=== PATIENT | female | born 1945 | race African-American/Black ===

== ENCOUNTER 2016-10-23 19:46 | Observation (INO) | payer MEDICARE, BC ==
[~2016-10-23] VITALS: Ht 172.7 cm; Wt 85.0 kg
[~2016-10-23 19:46] MED LIST: ALIG4CAP PO; ANTIDEPRESSANT PO; ASPI81 PO; BENI40TA30 PO; BETH10 PO; BRIM.15%O BOTH EYES; CALC500T21 PO; DORZ1SOL2 OD; JANU50TA5 PO; LACT20SO4 PO; LUMI0.01 RIGHT EYE; MAGN400 PO; OMEG1CAP53 PO; PROT40TA PO; STOOL SOFTENER PO; TAB-TAB PO; TRAZ100T50 PO
[2016-10-23 20:00] VITALS: BP 144/70; PULSE 90; RESP 20; TEMP 98.1; O2SAT 98
[2016-10-23] MEDS ORDERED: SODIUM CHLORIDE 0.9% FLUSH 10 ML FLUSH IVF PRN (20:00)
--- NOTE | 2016-10-23 20:04 | PD ---
HPI Chief Complaint: chest pain Time Seen by Provider: 19:55 Travel History International Travel<30 days: No Contact w/Intl Traveler<30days: No History of Present Illness HPI 71 y/o female presents with 5 minute episode of chest pain that occurred 40 minutes prior to arrival. She took aspirin that she had at home. She denies prior history of this. She states she had a routine stress test about 9 years ago that was negative. 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 She denies any other concurrent complaints. She states about 9 days ago she had a cast placed to her right leg by her wound care doctor to help her avoid surgery to that leg. She states she hasn't been as mobile since. Severity is resolved. She denies specific modifying factors. PFSH Past Medical History Arthritis: Yes (ALL OVER, KNEES, NECK ) Blood Disorders: Yes Anxiety: Yes (AT TIMES) Depression: Yes (IN PAST) Cancer: Yes (HX OF BREAST CA(RT BREAST)) Cardiovascular Problems: Yes High Cholesterol: Yes (UNDER CONTROL WITH FISH OIL) Chemotherapy: Yes Diabetes: Yes Endocrine: Yes GERD: Yes Glaucoma: Yes Genitourinary: No Immune Disorder: No Musculoskeletal: Yes Neurologic: No (NEUROPATHY ON TOP OF HEAD BUT NOT NOW) Psychiatric: Yes Reproductive: No Respiratory: Yes (BRONCHITIS) Radiation Therapy: Yes Sickle Cell Disease: Yes (TRACE) Menopausal: Yes Ovarian Cysts: Yes Past Surgical History Appendectomy: Yes Gynecologic Surgery: Yes (LUMPECTPMY 07, 80S, BLEEDING OVARIAN CYST) Other Surgery: Yes (RT LUMPECTOMY) Social History Alcohol Use: No Tobacco Use: No Substance Use: No Allergies-Medications (Allergen,Severity, Reaction): Coded Allergies: Zithromax (Verified Allergy, Severe, Nausea/Vomiting, 06/17/13) Reported Meds & Prescriptions Reported Meds & Active Scripts Active Reported [Alteril Sleep] 2 Tab PO HS Magnesium Oxide 400 Mg Tab 400 Mg PO BID Caltrate 600+D (Calcium Carbonate-Cholecalciferol) 600-800 Mg-Unit Tab 1 Tab PO DAILY Aspirin 81 Mg Tabdr 81 Mg PO HS Pred Forte Opth 1% (Prednisolone Acetate Opth 1%) 1% Susp 1 Drop RIGHT EYE DAILY Travatan Z Opth Drops (Travoprost) 0.004 % Soln 1 Drop LEFT EYE DAILY Centrum Silver Adult 50+ (Multiple Vitamins W/ Minerals) 1 Tab Tab 1 Tab PO DAILY Benicar (Olmesartan) 40 Mg Tab 40 Mg PO DAILY Protonix (Pantoprazole Sodium) 40 Mg Tab 40 Mg PO DAILY Janumet (Sitagliptin-Metformin) 50-500 Mg Tab 1 Tab PO DAILY Trazodone (Trazodone HCl) 100 Mg Tab 100 Mg PO HS Amitiza (Lubiprostone) 24 Mcg Cap 24 Mg PO DAILY @1700 Viibryd (Vilazodone) 40 Mg Tab 40 Mg PO DAILY Fish Oil 1200 mg ([place]-3 Fatty Acids) 1 Cap Cap 1,200 Mg PO BID D 2000 (Cholecalciferol) 2,000 Unit Tab 2,000 Units PO DAILY Zantac 150 Maximum Strength (Ranitidine HCl) 150 Mg Tab 150 Mg PO HS Cosopt Opth Drops (Dorzolamide-Timolol Opth Drops) 22.3-6.8 Mg/Ml Soln 1 Drop EACH EYE BID Review of Systems Except as stated in HPI: all other systems reviewed are Neg Physical Exam Narrative GENERAL: Well-nourished, well-developed patient. SKIN: Warm and dry. HEAD: Normocephalic and atraumatic. EYES: No injection or drainage. ENT: No nasal drainage noted. NECK: Supple, trachea midline. CARDIOVASCULAR: Regular rate and rhythm RESPIRATORY: Breath sounds equal bilaterally at apices. No accessory muscle use. GASTROINTESTINAL: Abdomen soft, non-tender, nondistended. EXTREMITIES: No edema to left leg, right leg limited with cast NEUROLOGICAL: Awake and alert. Moves all extremities. Normal speech. Data Data Last Documented VS Vital Signs Date Time Temp Pulse Resp B/P Pulse Ox O2 Delivery O2 Flow Rate FiO2 10/23/16 21:13 80 18 138/72 97 Room Air 10/23/16 20:00 98.1 Orders Electrocardiogram (10/23/16 19:59) Ckmb (Isoenzyme) Profile (10/23/16 19:59) Complete Blood Count With Diff (10/23/16 19:59) Comprehensive Metabolic Panel (10/23/16 19:59) D-Dimer (10/23/16 19:59) Magnesium (Mg) (10/23/16 19:59) Prothrombin Time / Inr (Pt) (10/23/16 19:59) Act Partial Throm Time (Ptt) (10/23/16 19:59) Troponin I (10/23/16 19:59) Chest, Single Ap (10/23/16 19:59) Ecg Monitoring (10/23/16 19:59) Bilateral Bp Monitoring (10/23/16 19:59) Iv Access Insert/Monitor (10/23/16 19:59) Oximetry (10/23/16 19:59) Sodium Chloride 0.9% Flush (Ns Flush) (10/23/16 20:00) CKMB (10/23/16 20:22) CKMB% (10/23/16 20:22) Ct Pulmonary Angiogram (10/23/16 ) Iohexol 350 Inj (Omnipaque 350 Inj) (10/23/16 21:41) Activity Bed Rest With Brp (10/23/16 22:13) Vital Signs (Adult) Q4H (10/23/16 22:13) Cardiac Rhythm .As Directed (10/23/16 22:13) Notify Dr: Other .PRN (10/23/16 22:13) Notify DrKaylin Parameters (10/23/16 22:13) Resp Oxygen Nasal Cannula (10/23/16 ) Ckmb (Isoenzyme) Profile (10/23/16 22:13) Ckmb (Isoenzyme) Profile (10/24/16 01:13) Troponin I (10/23/16 22:13) Troponin I (10/24/16 01:13) Electrocardiogram (10/23/16 22:13) Electrocardiogram (10/24/16 01:13) ^ Obtain (10/23/16 22:13) [employer] Architect / Telemetry TRINI.Q8H (10/23/16 22:13) Admit Order (Ed Use Only) (10/23/16 22:13) Labs Laboratory Tests Test 10/23/16 10/23/16 20:22 20:27 White Blood Count 9.7 TH/MM3 Red Blood Count 4.27 MIL/MM3 Hemoglobin 13.3 GM/DL Hematocrit 38.5 % Mean Corpuscular Volume 90.1 FL Mean Corpuscular Hemoglobin 31.2 PG Mean Corpuscular Hemoglobin 34.6 % Concent Red Cell Distribution Width 13.5 % Platelet Count 198 TH/MM3 Mean Platelet Volume 9.9 FL Neutrophils (%) (Auto) 70.2 % Lymphocytes (%) (Auto) 16.1 % Monocytes (%) (Auto) 10.5 % Eosinophils (%) (Auto) 2.3 % Basophils (%) (Auto) 0.9 % Neutrophils # (Auto) 6.8 TH/MM3 Lymphocytes # (Auto) 1.6 TH/MM3 Monocytes # (Auto) 1.0 TH/MM3 Eosinophils # (Auto) 0.2 TH/MM3 Basophils # (Auto) 0.1 TH/MM3 CBC Comment DIFF FINAL Differential Comment Sodium Level 137 MEQ/L Potassium Level 4.0 MEQ/L Chloride Level 103 MEQ/L Carbon Dioxide Level 25.7 MEQ/L Anion Gap 8 MEQ/L Blood Urea Nitrogen 18 MG/DL Creatinine 0.98 MG/DL Estimat Glomerular Filtration 67 ML/MIN Rate Random Glucose 90 MG/DL Calcium Level 9.2 MG/DL Magnesium Level 2.4 MG/DL Total Bilirubin 0.4 MG/DL Aspartate Amino Transf 20 U/L (AST/SGOT) Alanine Aminotransferase 23 U/L (ALT/SGPT) Alkaline Phosphatase 67 U/L Total Creatine Kinase 112 U/L Creatine Kinase MB 1.3 NG/ML Troponin I LESS THAN 0.02 NG/ML Total Protein 8.0 GM/DL Albumin 3.4 GM/DL Prothrombin Time 10.1 SEC Prothromb Time International 0.9 RATIO Ratio Activated Partial 24.7 SEC Thromboplast Time D-Dimer Quantitative (PE/DVT) 0.90 MG/L [facility] Medical Decision Making Medical Screen Exam Complete: Yes Emergency Medical Condition: Yes Medical Record Reviewed: Yes (past history confirmed) Interpretation(s) EMS EKG reviewed without STEMI criteria EKG shows NSR, no ST elevation or depression, and no arrhythmias. No significant T-wave inversions. Inferior leads with artifact CBC & BMP Diagram 10/23/16 20:22 Last 24 hours Impressions Chest X-Ray 10/23/16 1959 Signed Impressions: Service Date/Time: Sunday, October 23, 2016 20:03 - CONCLUSION: No evidence of acute cardiopulmonary disease. Cal Saleem MD CT Angiography 10/23/16 0000 Signed Impressions: Service Date/Time: Sunday, October 23, 2016 21:40 - CONCLUSION: No pulmonary embolus or other acute abnormality. Mild emphysema. Coronary artery calcification. Cal Saleem MD Differential Diagnosis Musculoskeletal, gastritis, cardiac, PE Narrative Course Will check blood work, chest x-ray, EKG and reevaluate. Currently pain-free ed workup no acute, agrees to [facility] observation Diagnosis Primary Impression: Chest pain Qualified Code: R07.9 - Chest pain, unspecified type Vicky Dugan MD October 23, 2016 20:04
[2016-10-23 20:08] VITALS: BP 148/68; PULSE 80; RESP 18; O2SAT 98; O2SAT 99
--- NOTE | 2016-10-23 20:25 | RADRPT ---
EXAM DATE/TIME: 10/23/2016 20:03 [facility] COMPARISON: No previous studies available for comparison. INDICATIONS : Chest pain. MEDICAL HISTORY : None. SURGICAL HISTORY : None. ENCOUNTER: Initial ACUITY: 1 day PAIN SCORE: 0/10 LOCATION: Bilateral chest FINDINGS: A single view of the chest demonstrates the lungs to be symmetrically aerated without evidence of mas s, infiltrate or effusion. The cardiomediastinal contours are unremarkable. Osseous structures are grossly intact. There is osteoarthritis of both acromioclavicular and glenohum eral joints. CONCLUSION: No evidence of acute cardiopulmonary disease. Cal Saleem MD on October 23, 2016 at 20:22 Board Certified Radiologist. This report was verified electronically.
[2016-10-23 20:34] LABS: AUTOMATED NEUTROPHIL # 6.8 TH/MM3 (1.8-7.7); BASOPHIL # 0.1 TH/MM3 (0-0.2); BASOPHIL % 0.9 % (0.0-2.0); EOSINOPHIL # 0.2 TH/MM3 (0-0.4); EOSINOPHIL % 2.3 % (0.0-4.0); HEMATOCRIT 38.5 % (35.0-46.0); HEMO FLAGS DIFF FINAL; LYMPH % 16.1 % (9.0-44.0); LYMPHOCYTE # 1.6 TH/MM3 (1.0-4.8); MEAN CELL VOLUME 90.1 FL (80.0-100.0); MEAN CORPUSCULAR HEMOGLOBIN 31.2 PG (27.0-34.0); MEAN CORPUSCULAR HGB CONC 34.6 % (32.0-36.0); MONO % 10.5 % (0.0-8.0); NEUT % 70.2 % (16.0-70.0); PLATELET COUNT 198 TH/MM3 (150-450); RED BLOOD COUNT 4.27 MIL/MM3 (4.00-5.30); RED CELL DISTRIBUTION WIDTH 13.5 % (11.6-17.2); WHITE BLOOD COUNT 9.7 TH/MM3 (4.0-11.0)
[2016-10-23 21:03] LABS: APTT (PATIENT) 24.7 SEC (24.3-30.1); INTERNATIONAL NORMALIZED RATIO 0.9 RATIO; PROTHROMBIN TIME - PATIENT 10.1 SEC (9.8-11.6)
[2016-10-23 21:04] LABS: ANION GAP 8 MEQ/L (5-15); AST (GOT) 20 U/L (15-37); BICARBONATE 25.7 MEQ/L (21.0-32.0); BLOOD UREA NITROGEN 18 MG/DL (7-18); CHLORIDE 103 MEQ/L (98-107); GLOMERULAR FILTRATION RATE 67 ML/MIN (>89); MAGNESIUM 2.4 MG/DL (1.5-2.5); SODIUM (NA) 137 MEQ/L (136-145)
[2016-10-23 21:09] LABS: ALKALINE PHOSPHATASE 67 U/L (45-117); ALT (GPT) 23 U/L (10-53); CREATINE KINASE 112 U/L (26-192); TOTAL BILIRUBIN ADULT 0.4 MG/DL (0.2-1.0)
[2016-10-23 21:13] VITALS: BP 138/72; PULSE 80; RESP 18; O2SAT 97
[2016-10-23 21:22] LABS: CKMB 1.3 NG/ML (0.5-3.6)
[2016-10-23] MEDS ORDERED: IOHEXOL 350 MG/ML 10 ML VIAL (for RAD DIAG) IV ONE (21:41)
[2016-10-23] MEDS ORDERED: AMIT24CA5 PO (22:09)
[2016-10-23] MEDS ORDERED: FISH1200 PO (22:09)
[2016-10-23] MEDS ORDERED: DORZ2SOL7 EACH EYE (22:09)
[2016-10-23] MEDS ORDERED: ZANTTAB PO (22:09)
[2016-10-23] MEDS ORDERED: CHOL1TAB35 PO (22:09)
[2016-10-23] MEDS ORDERED: VIIB40TA PO (22:09)
--- NOTE | 2016-10-23 22:11 | RADRPT ---
EXAM DATE/TIME: 10/23/2016 21:40 [facility] COMPARISON: No previous studies available for comparison. INDICATIONS : Chest pain; rule out pulmonary embolus. IV CONTRAST: 70 cc Omnipaque 350 (iohexol) IV RADIATION DOSE: 23.31 CTDIvol (mGy) MEDICAL HISTORY : Carcinoma, breast. Gastroesophageal reflux disease. Diabetes mellitus type 2.Cardiovascular disease SURGICAL HISTORY : Appendectomy. ENCOUNTER: Initial ACUITY: 1 day PAIN SCALE: 8/10 LOCATION: chest TECHNIQUE: Volumetric scanning of the chest was performed using a pulmonary embolism protocol MIP images were re constructed. Using automated exposure control and adjustment of the mA and/or kV according to patien t size, radiation dose was kept as low as reasonably achievable to obtain optimal diagnostic quality images. FINDINGS: PULMONARY ARTERIES: No filling defects are seen in the pulmonary arteries through the segmental level. LUNGS: There is no consolidation or pneumothorax . No concerning pulmonary nodule is visualized. There is m ild emphysema. PLEURAE: There is no pleural thickening or pleural effusion. MEDIASTINUM: There is good visualization of the great vessels of the middle mediastinum. No evidence of mediastin al or hilar adenopathy/mass. Coronary artery calcification noted. There is patchy atherosclerotic lester que of the thoracic aorta. No aneurysm. MUSCULOSKELETAL: Within normal limits for patient age. MISCELLANEOUS: The visualized upper abdominal organs demonstrate no acute abnormality. CONCLUSION: No pulmonary embolus or other acute abnormality. Mild emphysema. Coronary artery calcification. Cal Saleem MD on October 23, 2016 at 22:08 Board Certified Radiologist. This report was verified electronically.
[2016-10-23] MEDS ORDERED: BENI40TA3 PO (22:17)
[2016-10-23] MEDS ORDERED: PRED1SUS RIGHT EYE (22:17)
[2016-10-23] MEDS ORDERED: TRAV0.00 LEFT EYE (22:17)
[2016-10-23] MEDS ORDERED: TRAZ100T4 PO (22:17)
[2016-10-23] MEDS ORDERED: MULT1TAB PO (22:17)
[2016-10-23] MEDS ORDERED: PROT40TA PO (22:17)
[2016-10-23] MEDS ORDERED: JANU50TA4 PO (22:17)
[2016-10-23] MEDS ORDERED: ASPI1TAB69 PO (22:18)
[2016-10-23] MEDS ORDERED: MAGN400T2 PO (22:20)
[2016-10-23] MEDS ORDERED: CALTTAB PO (22:20)
[2016-10-23] MEDS ORDERED: [UNRECOGNIZED DRUG - OTHER] PO (22:24)
[2016-10-24] VITALS: BP 138/84; PULSE 101; RESP 20; TEMP 97.6; O2SAT 97
[2016-10-24 00:10] LABS: CREATINE KINASE 96 U/L (26-192)
[2016-10-24 00:15] VITALS: BP 138/84; PULSE 101; RESP 20; TEMP 97.6; O2SAT 97
[2016-10-24 04:00] VITALS: BP 136/63; PULSE 99; RESP 20; TEMP 98.4; O2SAT 95
[2016-10-24 04:03] LABS: CREATINE KINASE 97 U/L (26-192)
[2016-10-24 04:34] VITALS: PULSE 101
[2016-10-24 07:58] VITALS: BP 131/60; PULSE 99; RESP 18; TEMP 98.2; O2SAT 95
[2016-10-24 08:00] VITALS: PULSE 100
[2016-10-24] MEDS ORDERED: REGADENOSON INJ 0.4 MG/5 ML SYR ONE (09:11)
--- NOTE | 2016-10-24 09:51 | HHI.HP ---
[facility] Primary Care Physician Tita Salazar DO Chief Complaint Chest pain History of Present Illness This is a 71-year-old female that presents to ED with a complaint of back and chest discomfort that began yesterday afternoon. She states it radiated from her back into her front area and is pushing at the epigastric region but then states it was hurting her chest. She states discomfort radiated up into the left jaw. It lasted little less than 10 minutes. She had no associated shortness of breath, nausea, or diaphoresis. The discomfort has not recurred. Denies history of CAD. Review of Systems General: Patient denies fevers, chills recent, and recent travel HEENT: Patient denies headache, sore throat, difficulty swallowing. Cardiovascular: Has the chest discomfort as mentioned above. Denies sensation of heart beating rapidly or irregularly. No syncope. Denies diaphoresis. Respiratory: Denies shortness of breath or inspirational chest discomfort. Denies coughing wheezing or hemoptysis. GI: Patient denies nausea, vomiting, diarrhea, abdominal pain, bloody stools. Musculoskeletal: Patient denies joint pain or edema. Denies calf pain or edema. Neurovascular: Patient denies numbness, tingling, weakness in extremities. Denies headache. Endocrine: Denies polyuria and polydipsia. Hematologic: Denies easy bruising. Skin: Denies rash or itching. Past Family Social History Allergies: Coded Allergies: Zithromax (Verified Allergy, Severe, Nausea/Vomiting, 06/17/13) Past Medical History Diabetes, hypertension, hyperlipidemia. Denies known CAD. Wound under her toes of her right foot that she states she wears a cast for. Her doctor is following this. Past Surgical History Breast lumpectomy in 2006. Reported Medications Reported Meds & Active Scripts Active Reported [Alteril Sleep] 2 Tab PO HS Magnesium Oxide 400 Mg Tab 400 Mg PO BID Caltrate 600+D (Calcium Carbonate-Cholecalciferol) 600-800 Mg-Unit Tab 1 Tab PO DAILY Aspirin 81 Mg Tabdr 81 Mg PO HS Pred Forte Opth 1% (Prednisolone Acetate Opth 1%) 1% Susp 1 Drop RIGHT EYE DAILY Travatan Z Opth Drops (Travoprost) 0.004 % Soln 1 Drop LEFT EYE DAILY Centrum Silver Adult 50+ (Multiple Vitamins W/ Minerals) 1 Tab Tab 1 Tab PO DAILY Benicar (Olmesartan) 40 Mg Tab 40 Mg PO DAILY Protonix (Pantoprazole Sodium) 40 Mg Tab 40 Mg PO DAILY Janumet (Sitagliptin-Metformin) 50-500 Mg Tab 1 Tab PO DAILY Trazodone (Trazodone HCl) 100 Mg Tab 100 Mg PO HS Amitiza (Lubiprostone) 24 Mcg Cap 24 Mg PO DAILY @1700 Viibryd (Vilazodone) 40 Mg Tab 40 Mg PO DAILY Fish Oil 1200 mg ([place]-3 Fatty Acids) 1 Cap Cap 1,200 Mg PO BID D 2000 (Cholecalciferol) 2,000 Unit Tab 2,000 Units PO DAILY Zantac 150 Maximum Strength (Ranitidine HCl) 150 Mg Tab 150 Mg PO HS Cosopt Opth Drops (Dorzolamide-Timolol Opth Drops) 22.3-6.8 Mg/Ml Soln 1 Drop EACH EYE BID Active Ordered Medications Current Medications Medications (Trade) Dose Ordered Sig/Johanny Route Start Time Stop Time Status Last Admin (NS Flush) 2 ml UNSCH PRN IVF 10/23/16 20:00 Family History Denies family history of CAD. Social History Patient does not smoke, drink alcohol, or use illicit drugs. Physical Exam Vital Signs Vital Signs Date Time Temp Pulse Resp B/P Pulse Ox O2 Delivery O2 Flow Rate FiO2 10/24/16 07:58 98.2 99 18 131/60 95 10/24/16 06:50 21 10/24/16 04:34 101 10/24/16 04:00 98.4 99 20 136/63 95 10/24/16 00:15 97.6 101 20 138/84 97 10/23/16 21:13 80 18 138/72 97 Room Air 10/23/16 20:08 80 18 148/68 99 Room Air 10/23/16 20:08 98 Room Air 10/23/16 20:08 88 10/23/16 20:00 98.1 90 20 144/70 98 Physical Exam GENERAL: This is a well-nourished, well-developed patient, in no apparent distress. Patient speaks in clear complete sentences. Patient is pleasant. HEENT: Head is atraumatic and normocephalic. Neck is supple without lymphadenopathy and trachea is midline. No JVD or carotid bruits. CARDIOVASCULAR: Regular rate and rhythm without murmurs, gallops, or rubs. RESPIRATORY: Clear to auscultation. Breath sounds equal bilaterally. No wheezes , rales, or rhonchi. Chest wall is nontender. No use of accessory muscles. GASTROINTESTINAL: Abdomen is nontender, nondistended. Abdomen soft. No obvious pulsatile mass or bruit. No CVA tenderness. Strong femoral pulses bilaterally. Normal bowel sounds in all quadrants. MUSCULOSKELETAL: Patient is moving upper and lower extremities freely. No calf tenderness or edema, no Homans sign. Strong pulses in upper and lower extremities. Right foot has a cast on it. NEUROLOGICAL: Patient is alert and oriented. Cranial nerves 2-12 are grossly intact. No focal deficits and speech is clear. SKIN: No rash and turgor is normal. Laboratory Laboratory Tests Test 10/23/16 10/23/16 10/23/16 10/24/16 20:22 20:27 23:30 02:35 White Blood Count 9.7 Red Blood Count 4.27 Hemoglobin 13.3 Hematocrit 38.5 Mean Corpuscular Volume 90.1 Mean Corpuscular Hemoglobin 31.2 Mean Corpuscular Hemoglobin 34.6 Concent Red Cell Distribution Width 13.5 Platelet Count 198 Mean Platelet Volume 9.9 Neutrophils (%) (Auto) 70.2 Lymphocytes (%) (Auto) 16.1 Monocytes (%) (Auto) 10.5 Eosinophils (%) (Auto) 2.3 Basophils (%) (Auto) 0.9 Neutrophils # (Auto) 6.8 Lymphocytes # (Auto) 1.6 Monocytes # (Auto) 1.0 Eosinophils # (Auto) 0.2 Basophils # (Auto) 0.1 CBC Comment DIFF FINAL Differential Comment Sodium Level 137 Potassium Level 4.0 Chloride Level 103 Carbon Dioxide Level 25.7 Anion Gap 8 Blood Urea Nitrogen 18 Creatinine 0.98 Estimat Glomerular Filtration 67 Rate Random Glucose 90 Calcium Level 9.2 Magnesium Level 2.4 Total Bilirubin 0.4 Aspartate Amino Transf 20 (AST/SGOT) Alanine Aminotransferase 23 (ALT/SGPT) Alkaline Phosphatase 67 Total Creatine Kinase 112 96 97 Creatine Kinase MB 1.3 Troponin I LESS THAN 0.02 LESS THAN 0.02 LESS THAN 0.02 Total Protein 8.0 Albumin 3.4 Prothrombin Time 10.1 Prothromb Time International 0.9 Ratio Activated Partial 24.7 Thromboplast Time D-Dimer Quantitative (PE/DVT) 0.90 Result Diagram: 5/21/17 2022 5/21/17 2022 Imaging Last 48 hours Impressions Chest X-Ray 10/23/16 1959 Signed Impressions: Service Date/Time: Sunday, October 23, 2016 20:03 - CONCLUSION: No evidence of acute cardiopulmonary disease. Cal Saleem MD CT Angiography 10/23/16 0000 Signed Impressions: Service Date/Time: Sunday, October 23, 2016 21:40 - CONCLUSION: No pulmonary embolus or other acute abnormality. Mild emphysema. Coronary artery calcification. Cal Saleem MD Course EKGs have sinus rhythm without significant ST segment depressions or elevations. Assessment and Plan Assessment and Plan * Chest pain: Patient has had serial cardiac enzymes and EKGs for ruling out purposes. She has been seen by Dr. Andrey Mccarthy of cardiology in the chest pain center and will undergo a Lexiscan. She'll be discharged home the Lexiscan is nonischemic with instructions to follow-up with her primary care physician. * Diabetes: Patient will be on sliding scale insulin coverage. She should follow diabetic diet. Patient also she will statin medication should discuss it with her physician. * Hypertension: Continue her medication. * Hyperlipidemia: Patient needs discuss statin therapy with her PCP. States she is taking [id number] medication at this time. Patient is stable at this time. She is agreeable to this plan. Zander Davenport October 24, 2016 09:51
[2016-10-24] MEDS ORDERED: DEXTROSE 50% IN WATER 50 ML VIAL(D50) IV PRN (10:00)
[2016-10-24] MEDS ORDERED: GLUCAGON 1 MG/ML VIAL IM/SQ PRN (10:00)
--- NOTE | 2016-10-24 10:44 | RADRPT ---
EXAM DATE/TIME: 10/24/2016 09:01 [facility] COMPARISON: No previous studies available for comparison. INDICATIONS : Chest pains for 1 day. Angina. DOSE: 26.6 mCi Tc99m Myoview at stress. 8.1 mCi Tc99m Myoview at rest. 0.4 mg Lexiscan STRESS SYMPTOMS: Shortness of breath. EJECTION FRACTION: 46% MEDICAL HISTORY : Hypertension. Carcinoma, breast. History of smoking. SURGICAL HISTORY : Mastectomy, right. ENCOUNTER: Initial ACUITY: 1 day PAIN SCALE: 2/10 LOCATION: Bilateral chest TECHNIQUE: The patient underwent pharmacologic stress with infusion of prescribed dose. Continuous ECG tracing was monitored during stress. Gated SPECT imaging was performed after stress and conventional SPECT i maging was performed at rest. The examination was performed on a SPECT/CT scanner, both attenuation and non-corrected datasets were reviewed. FINDINGS: DISTRIBUTION: The maximum perfused segment at stress is in the septal wall. PERFUSION STUDY: Is moderately diminished perfusion involving a small portion of the apex. No evidence of redistributi on. GATED STUDY: Mild global hypokinesis CONCLUSION: Small sized moderate severity nonreversible apical perfusion abnormality. Mild LV dysfunction. RISK CATEGORY: Intermediate (1-3% Annual Mortality Rate) Cal Torrez MD on October 24, 2016 at 10:40 Board Certified Radiologist. This report was verified electronically.
--- NOTE | 2016-10-24 10:58 | HHI.DCPOC ---
Discharge Care Plan Diagnosis: (1) Chest pain (2) Hypertension (3) DM (diabetes mellitus) Goals to Promote Your Health YOU SHOULD BE TAKING A CHOLESTEROL MEDICATION WHEN YOU HAVE A DIAGNOSIS OF DIABETES DISCUSS THIS WITH YOUR PRIMARY CARE PHYSICAN. * To prevent worsening of your condition and complications * To maintain your health at the optimal level Directions to Meet Your Goals Take your medications as prescribed Follow your dietary instruction Follow activity as directed Keep your appointments as scheduled Take your immunizations and boosters as scheduled If your symptoms worsen call your PCP, if no PCP go to Urgent Care Center or Emergency Room Smoking is Dangerous to Your Health. Avoid second hand smoke Call the 24-hour hour crisis hotline for domestic abuse at Zander Davenport October 24, 2016 10:57
[2016-10-24] MEDS ORDERED: PANTOPRAZOLE SOD 40 MG DELAYED RELEASE TAB PO SCH (11:00)
[2016-10-24] MEDS ORDERED: INSULIN ASPART SUPPLEMENTAL SCALE SQ SCH (11:00)
[2016-10-24] MEDS ORDERED: LOSARTAN 50 MG TAB PO SCH (12:00)
--- NOTE | 2016-10-24 14:57 | EKG ---
Date Performed: 10/24/2016 Time Performed: 02:52:49 PTAGE: 71 years EKG: Sinus rhythm POSSIBLE RIGHT ATRIAL ENLARGEMENT POSSIBLE LEFT ATRIAL ENLARGEMENT MARKED LEFT AXIS DEVIATION PATTER N CONSISTENT WITH PULMONARY DISEASE ABNORMAL ECG PREVIOUS TRACING : 04/18/2010 16.51 Since previous tracing, no significant change noted DOCTOR: Andrey Mccarthy Interpretating Date/Time 10/24/2016 14:55:18
--- NOTE | 2016-10-24 14:58 | EKG ---
Date Performed: 10/23/2016 Time Performed: 23:38:38 PTAGE: 71 years EKG: Sinus rhythm POSSIBLE RIGHT ATRIAL ENLARGEMENT POSSIBLE LEFT ATRIAL ENLARGEMENT MARKED LEFT AXIS DEVIATION PATTER N CONSISTENT WITH PULMONARY DISEASE ABNORMAL ECG PREVIOUS TRACING : 10/23/2016 20.07 Since previous tracing, no significant change noted DOCTOR: Andrey Mccarthy Interpretating Date/Time 10/24/2016 14:56:42
--- NOTE | 2016-10-24 14:59 | EKG ---
Date Performed: 10/23/2016 Time Performed: 20:07:10 PTAGE: 71 years EKG: Sinus rhythm POSSIBLE RIGHT ATRIAL ENLARGEMENT POSSIBLE LEFT ATRIAL ENLARGEMENT MARKED LEFT AXIS DEVIATION ABNORM AL ECG PREVIOUS TRACING : 10/23/2016 20.05 Since previous tracing, no significant change noted DOCTOR: Andrey Mccarthy Interpretating Date/Time 10/24/2016 14:57:29
[2016-10-24] MEDS ORDERED: LUBIPROSTONE 24 MG PO SCH (17:00)
[2016-10-24] MEDS ORDERED: traZODone HCL 100 MG TAB PO SCH (21:00)
[2016-10-24] MEDS ORDERED: FAMOTIDINE 20 MG TAB PO SCH (21:00)
[2016-10-24] MEDS ORDERED: MAGNESIUM OXIDE 400 MG TAB PO SCH (21:00)
[2016-10-25] MEDS ORDERED: MULTIVITAMINS/MINERALS THERAPEUTIC TAB PO SCH (09:00)
[2016-10-25] MEDS ORDERED: metFORMIN HCL 500 MG TAB PO SCH (09:00)
[2016-10-25] MEDS ORDERED: NON-FORMULARY DRUG (Sitagliptin-Metformin (Janumet) 1 TAB) PO SCH (09:00)
[2016-10-25] MEDS ORDERED: VILAZODONE 40 MG PO SCH (09:00)
--- NOTE | 2016-10-26 07:02 | TR ---
Date Performed: 10/24/2016 Time Performed: 09:32:02 DOCTOR: Akanksha Zuluaga DRUG LIST: CLINICAL HISTORY: ANGINA REASON FOR TEST: Angina REASON FOR ENDING: OBSERVATION: CONCLUSION: Lexiscan stress test was performed under standard four minute protocol. Radionuclid e was injected one minute prior to ending the test. No electrocardiographic abormalities were present to suggest ischemia. Nuclear imaging and interpretation are pending. COMMENTS:
== END 2016-10-24 14:19 | disposition home or self-care (01) ==
LOC: NEPC 19:46 → NEDA 22:14 → NEPGCP 10-24 00:19
DX: R07.89 Other chest pain (principal); E11.9 Type 2 diabetes mellitus without complications; I10 Essential (primary) hypertension; E78.5 Hyperlipidemia, unspecified; M17.0 Bilateral primary osteoarthritis of knee; E78.00 Pure hypercholesterolemia, unspecified; D57.1 Sickle-cell disease without crisis; K21.9 Gastro-esophageal reflux disease without esophagitis; F41.9 Anxiety disorder, unspecified; F32.9 Major depressive disorder, single episode, unspecified; Z79.82 Long term (current) use of aspirin; Z88.1 Allergy status to other antibiotic agents; Z85.3 Personal history of malignant neoplasm of breast
CPT/HCPCS: 71010; 71275; 78452; 80053; 82550; 82552; 82948; 83735; 84484; 85025; 85379; 85610; 85730; 93005; 93017; A9502; G0378; J2785; Q9967

== ENCOUNTER 2017-06-26 15:14 | Observation (INO) | payer MEDICARE, BC ==
[~2017-06-26] VITALS: Ht 165.1 cm; Wt 93.0 kg
[~2017-06-26 15:14] MED LIST changes: -ALIG4CAP PO; +AMIT24CA9 PO; -ANTIDEPRESSANT PO; +ASPI1TAB69 PO; -ASPI81 PO; +BENI40TA29 PO; -BENI40TA30 PO; -BETH10 PO; -BRIM.15%O BOTH EYES; -CALC500T21 PO; +CALTTAB PO; +CHOL1TAB35 PO; -DORZ1SOL2 OD; +DORZ2SOL7 EACH EYE; +FISH1200 PO; +JANU50TA4 PO; -JANU50TA5 PO; -LACT20SO4 PO; -LUMI0.01 RIGHT EYE; -MAGN400 PO; +MAGN400T2 PO; +MULT1TAB PO; -OMEG1CAP53 PO; +PRED1SUS RIGHT EYE; -STOOL SOFTENER PO; -TAB-TAB PO; +TRAV0.00 LEFT EYE; +TRAZ100T4 PO; -TRAZ100T50 PO; +VIIB40TA PO; +ZANTTAB PO
[2017-06-26 15:18] VITALS: BP 103/71; PULSE 107; RESP 14; TEMP 98.4; O2SAT 96
--- NOTE | 2017-06-26 16:48 | RADRPT ---
EXAM DATE/TIME: 06/26/2017 15:39 [facility] COMPARISON: No previous studies available for comparison. INDICATIONS : Short of breath MEDICAL HISTORY : Hypertension. Carcinoma, breast. History of smoking SURGICAL HISTORY : Mastectomy, right. ENCOUNTER: Initial ACUITY: 3 weeks PAIN SCORE: 0/10 LOCATION: Bilateral chest FINDINGS: PA and lateral views of the chest demonstrate the lungs to be symmetrically aerated without evidence of mass, infiltrate or effusion. The cardiomediastinal contours are unremarkable. Osseous structure s are intact. CONCLUSION: 1. No acute cardiopulmonary disease. John Hoffman MD on June 26, 2017 at 16:31 Board Certified Radiologist. This report was verified electronically.
[2017-06-26 17:11] LABS: BASOPHIL # 0.1 TH/MM3 (0-0.2); BASOPHIL % 0.8 % (0.0-2.0); EOSINOPHIL # 0.2 TH/MM3 (0-0.4); EOSINOPHIL % 2.9 % (0.0-4.0); HEMATOCRIT 40.4 % (35.0-46.0); HEMOGLOBIN 13.8 GM/DL (11.6-15.3); LYMPH % 18.3 % (9.0-44.0); LYMPHOCYTE # 1.4 TH/MM3 (1.0-4.8); MEAN CELL VOLUME 88.8 FL (80.0-100.0); MEAN CORPUSCULAR HEMOGLOBIN 30.3 PG (27.0-34.0); MEAN CORPUSCULAR HGB CONC 34.1 % (32.0-36.0); MEAN PLATELET VOLUME 10.1 FL (7.0-11.0); MONO % 10.7 % (0.0-8.0); MONOCYTE # 0.8 TH/MM3 (0-0.9); NEUT % 67.3 % (16.0-70.0); PLATELET COUNT 212 TH/MM3 (150-450); RED BLOOD COUNT 4.54 MIL/MM3 (4.00-5.30); RED CELL DISTRIBUTION WIDTH 14.3 % (11.6-17.2); WHITE BLOOD COUNT 7.5 TH/MM3 (4.0-11.0)
[2017-06-26] MEDS ORDERED: SODIUM CHLOR 0.9% 1000 ML INJ 1,000 ML IV ONE (17:15)
[2017-06-26] MEDS ORDERED: ACETAMINOPHEN/HYDROcodone 325 MG/5 MG TAB PO ONE (17:15)
[2017-06-26 17:21] LABS: PROTHROMBIN TIME - PATIENT 10.3 SEC (9.8-11.6)
[2017-06-26] MEDS ORDERED: ACYC400T PO (17:23)
--- NOTE | 2017-06-26 17:24 | PD ---
HPI Chief Complaint: Cold / Flu Symptoms Time Seen by Provider: 16:58 Travel History International Travel<30 days: No Contact w/Intl Traveler<30days: No Traveled to known affect area: No History of Present Illness HPI 72-year-old female with a history of diabetes presents to emergency department complaining of general malaise, fatigue, shortness of breath with exertion approximately 6 months. Patient states she came in today because she has shortness of breath after walking 10 feet for 1 week. States she has developed a nonproductive cough for the last week as well. States that the symptoms started after her colonoscopy March 25 and she has been evaluated by Dr. Michael, her records analyst who performed a heart catheter in April 2017. States that this was normal. In addition, patient states that she has having right occipital pain that started 5 days ago. Patient denies blurred vision, head trauma, neck trauma. Patient saw her primary care physician Monday and advised she go to her records analyst again for evaluation. Patient denies history of cardiac, pulmonary or kidney issues. She has a history of Yeung's esophagus and colonic polyps. Patient denies nausea, vomiting or diarrhea. Denies melena, hematochezia, hemoptysis, hematemesis. Denies history of clots, recent travel. PFSH Past Medical History Arthritis: Yes (ALL OVER, KNEES, NECK ) Blood Disorders: Yes Anxiety: Yes (AT TIMES) Depression: Yes (IN PAST) Heart Rhythm Problems: No Cancer: Yes (HX OF BREAST CA(RT BREAST)) Cardiac Catheterization: No Cardiovascular Problems: Yes High Cholesterol: No Chemotherapy: Yes Congestive Heart Failure: No Diabetes: No Endocrine: Yes Gastrointestinal Disorders: Yes GERD: Yes Glaucoma: Yes Genitourinary: No Immune Disorder: No Musculoskeletal: Yes Psychiatric: Yes Reproductive: No Respiratory: Yes (BRONCHITIS) Radiation Therapy: Yes Sickle Cell Disease: Yes (TRACE) Menopausal: Yes Ovarian Cysts: Yes Past Surgical History Appendectomy: Yes Coronary Artery Bypass Graft: No Gynecologic Surgery: Yes (LUMPECTPMY 07, 80S, BLEEDING OVARIAN CYST) Other Surgery: Yes (RT LUMPECTOMY) Social History Alcohol Use: Yes (BEER NIGHTLY ) Tobacco Use: No (20 YEARS QUIT ) Substance Use: No Allergies-Medications (Allergen,Severity, Reaction): Coded Allergies: azithromycin (Verified Allergy, Severe, Nausea/Vomiting, 06/26/17) Reported Meds & Prescriptions Reported Meds & Active Scripts Active Reported Paxil (Paroxetine HCl) 10 Mg Tab 10 Mg PO DAILY Trazodone (Trazodone HCl) 100 Mg Tablet 100 Mg PO HS Magnesium Oxide 400 Mg Tab 400 Mg PO BID Pred Forte Opth 1% (Prednisolone Acetate Opth 1%) 1% Susp 1 Drop RIGHT EYE DAILY Travatan Z Opth Drops (Travoprost) 0.004 % Soln 1 Drop LEFT EYE DAILY Centrum Silver Adult 50+ (Multiple Vitamins W/ Minerals) 1 Tab Tab 1 Tab PO DAILY Benicar (Olmesartan) 40 Mg Tab 40 Mg PO DAILY Protonix (Pantoprazole Sodium) 40 Mg Tab 40 Mg PO DAILY Janumet (Sitagliptin-Metformin) 50-500 Mg Tab 1 Tab PO DAILY Amitiza (Lubiprostone) 24 Mcg Cap 24 Mg PO DAILY @1700 Fish Oil 1200 mg ([place]-3 Fatty Acids) 1 Cap Cap 1,200 Mg PO BID D 2000 (Cholecalciferol) 2,000 Unit Tab 2,000 Units PO DAILY Zantac 150 Maximum Strength (Ranitidine HCl) 150 Mg Tab 150 Mg PO HS Cosopt Opth Drops (Dorzolamide-Timolol Opth Drops) 22.3-6.8 Mg/Ml Soln 1 Drop EACH EYE BID Review of Systems Except as stated in HPI: all other systems reviewed are Neg Physical Exam Narrative GENERAL: Well-developed well-nourished in no apparent distress resting comfortably in bed SKIN: Focused skin assessment warm/dry. HEAD: Atraumatic. Normocephalic. EYES: Pupils equal and round. No scleral icterus. No injection or drainage. ENT: No nasal bleeding or discharge. Mucous membranes pink and moist. NECK: Trachea midline. No JVD. No lymphadenopathy CARDIOVASCULAR: Regular rate and rhythm. No murmur appreciated. RESPIRATORY: No accessory muscle use. Clear to auscultation. Breath sounds equal bilaterally. GASTROINTESTINAL: Abdomen soft, non-tender, nondistended. Hepatic and splenic margins not palpable. MUSCULOSKELETAL: No obvious deformities. No clubbing. No cyanosis. No edema. Homans sign negative bilateral lower extremities. NEUROLOGICAL: Awake and alert. No obvious cranial nerve deficits. Motor grossly within normal limits. Normal speech. PSYCHIATRIC: Appropriate mood and affect; insight and judgment normal. Data Data Last Documented VS Vital Signs Date Time Temp Pulse Resp B/P (MAP) Pulse Ox O2 Delivery O2 Flow Rate FiO2 06/26/17 19:21 92 20 117/79 (92) 98 Room Air 06/26/17 15:18 98.4 Orders Orders Complete Blood Count With Diff (06/26/17 15:30) Comprehensive Metabolic Panel (06/26/17 15:30) Act Partial Throm Time (Ptt) (06/26/17 15:30) Prothrombin Time / Inr (Pt) (06/26/17 15:30) Magnesium (Mg) (06/26/17 15:30) Ckmb (Isoenzyme) Profile (06/26/17 15:30) Troponin I (06/26/17 15:30) Electrocardiogram (06/26/17 15:30) Chest, Pa & Lat (06/26/17 15:30) Influenzae A/B Antigen (06/26/17 15:30) Sodium Chlor 0.9% 1000 Ml Inj (Ns 1000 M (06/26/17 17:15) Acetamin-Hydrocod 325-5 Mg ([place] 5-325 (06/26/17 17:15) Iv Access Insert/Monitor (06/26/17 17:17) Albuterol-Ipratropium Neb (Duoneb Neb) (06/26/17 17:30) CKMB (06/26/17 16:07) CKMB% (06/26/17 16:07) Diltiazem Inj (Cardizem Inj) (06/26/17 19:15) Admit Order (Ed Use Only) (06/26/17 19:25) Labs Laboratory Tests Test 06/26/17 16:07 White Blood Count 7.5 TH/MM3 Red Blood Count 4.54 MIL/MM3 Hemoglobin 13.8 GM/DL Hematocrit 40.4 % Mean Corpuscular Volume 88.8 FL Mean Corpuscular Hemoglobin 30.3 PG Mean Corpuscular Hemoglobin Concent 34.1 % Red Cell Distribution Width 14.3 % Platelet Count 212 TH/MM3 Mean Platelet Volume 10.1 FL Neutrophils (%) (Auto) 67.3 % Lymphocytes (%) (Auto) 18.3 % Monocytes (%) (Auto) 10.7 % Eosinophils (%) (Auto) 2.9 % Basophils (%) (Auto) 0.8 % Neutrophils # (Auto) 5.0 TH/MM3 Lymphocytes # (Auto) 1.4 TH/MM3 Monocytes # (Auto) 0.8 TH/MM3 Eosinophils # (Auto) 0.2 TH/MM3 Basophils # (Auto) 0.1 TH/MM3 CBC Comment DIFF FINAL Differential Comment Prothrombin Time 10.3 SEC Prothromb Time International Ratio 1.0 RATIO Activated Partial Thromboplast Time 26.1 SEC Blood Urea Nitrogen 12 MG/DL Creatinine 1.06 MG/DL Random Glucose 134 MG/DL Total Protein 8.2 GM/DL Albumin 3.4 GM/DL Calcium Level 8.9 MG/DL Magnesium Level 2.2 MG/DL Alkaline Phosphatase 67 U/L Aspartate Amino Transf (AST/SGOT) 20 U/L Alanine Aminotransferase (ALT/SGPT) 21 U/L Total Bilirubin 0.4 MG/DL Sodium Level 140 MEQ/L Potassium Level 3.9 MEQ/L Chloride Level 106 MEQ/L Carbon Dioxide Level 24.6 MEQ/L Anion Gap 9 MEQ/L Estimat Glomerular Filtration Rate 61 ML/MIN Total Creatine Kinase 267 U/L Creatine Kinase MB 2.1 NG/ML Creatine Kinase MB % 0.8 % Troponin I LESS THAN 0.02 NG/ML MDM Medical Decision Making Medical Screen Exam Complete: Yes Emergency Medical Condition: Yes Differential Diagnosis NSTEMI, herpes zoster, occipital neuralgia Narrative Course 72-year-old female with a history of diabetes presents to emergency department complaining of general malaise, fatigue, shortness of breath with exertion approximately 6 months. Patient states she came in today because she has shortness of breath after walking 10 feet for 1 week. States she has developed a nonproductive cough for the last week as well. States that the symptoms started after her colonoscopy March 25 and she has been evaluated by Dr. Michael, her records analyst who performed a heart catheter in April 2017. States that this was normal. In addition, patient states that she has having right occipital pain that started 5 days ago. Patient denies blurred vision, head trauma, neck trauma. Patient saw her primary care physician Monday and advised she go to her records analyst again for evaluation. Patient denies history of cardiac, pulmonary or kidney issues. She has a history of Yeung's esophagus and colonic polyps. Patient denies nausea, vomiting or diarrhea. Denies melena, hematochezia, hemoptysis, hematemesis. Denies history of clots, recent travel. Vital signs-tachycardic at 100 to 130. Physical exam findings consistent with herpes zoster on the right parietal area- C2 region EKG demonstrates an apparent new atrial flutter or fibrillation versus sinus tachycardia. Note the patient does not claim a history of atrial fibrillation or atrial flutter. I reviewed the EMR, did not demonstrate this finding either. Chest x-ray without acute process. DuoNeb administered for possible pulmonary involvement. Patient has been complaining of upper respiratory type symptoms. Patient denies significant improvement. Cardizem 10mg ordered but just prior to administration, heart rate remained steady in the 90s. Not administered in the ED today. Consider treatment with acyclovir, gabapentin for herpetic neuralgia I spoke with Dr. Person, records analyst who recommends she be admitted with an echocardiogram in the morning. Patient will be admitted for observation. Physician Communication Physician Communication I spoke with Dr. Person, records analyst, regarding this patient. He recommends admission for observation with echocardiogram in the morning. Cardiology consult. Diagnosis Primary Impression: Shingles Qualified Codes: B02.9 - Zoster without complications Additional Impressions: New onset a-fib Shortness of breath Admitting Information Admitting Physician Requests: Observation Condition: Stable Breann Aggarwal Jun 26, 2017 17:24
[2017-06-26] MEDS ORDERED: RESP: ALBUTEROL 2.5 MG/IPRATROPIUM 0.5 MG NEB (SCH) INH ONE (17:30)
[2017-06-26 17:49] LABS: ALBUMIN 3.4 GM/DL (3.4-5.0); AST (GOT) 20 U/L (15-37); BICARBONATE 24.6 MEQ/L (21.0-32.0); BLOOD UREA NITROGEN 12 MG/DL (7-18); CALCIUM 8.9 MG/DL (8.5-10.1); CHLORIDE 106 MEQ/L (98-107); CREATININE 1.06 MG/DL (0.50-1.00); GLOMERULAR FILTRATION RATE 61 ML/MIN (>89); GLUCOSE,RANDOM 134 MG/DL (74-106); MAGNESIUM 2.2 MG/DL (1.5-2.5); SODIUM (NA) 140 MEQ/L (136-145)
[2017-06-26 17:50] LABS: ALT (GPT) 21 U/L (10-53)
[2017-06-26 17:54] LABS: ALKALINE PHOSPHATASE 67 U/L (45-117); TOTAL BILIRUBIN ADULT 0.4 MG/DL (0.2-1.0); TOTAL PROTEIN 8.2 GM/DL (6.4-8.2); TROPONIN I LESS THAN 0.02 NG/ML (0.02-0.05)
[2017-06-26] MEDS ORDERED: TRAZ100T10 PO (18:05)
[2017-06-26] MEDS ORDERED: PAXI10TA8 PO (18:05)
[2017-06-26] MEDS ORDERED: DILTIAZEM HCL 25 MG/5 ML VIAL IV ONE (19:15)
[2017-06-26 19:21] VITALS: BP 117/79; PULSE 92; RESP 20; O2SAT 98
[2017-06-26] MEDS ORDERED: DEXTROSE 50% IN WATER 50 ML VIAL(D50) IV PUSH PRN (19:45)
[2017-06-26] MEDS ORDERED: ONDANSETRON HCL 4 MG/2 ML VIAL IVP PRN (19:45)
[2017-06-26] MEDS ORDERED: ACETAMINOPHEN 325 MG TAB PO PRN (19:45)
[2017-06-26] MEDS ORDERED: GLUCAGON 1 MG/ML VIAL OTHER PRN (19:45)
[2017-06-26] MEDS ORDERED: NALOXONE HCL 0.4 MG/ML AMP IV PUSH PRN (19:45)
[2017-06-26] MEDS ORDERED: SODIUM CHLORIDE 0.9% FLUSH 10 ML FLUSH IV FLUSH PRN (19:45)
[2017-06-26] MEDS: INSULIN ASPART SUPPLEMENTAL SCALE SQ SCH (21:00)
[2017-06-26 21:13] VITALS: BP 144/69; PULSE 91; RESP 18; O2SAT 98
[2017-06-26] MEDS: DORZOLAMIDE/TIMOLOL OPTH SOLN 10 ML BTL EACH EYE SCH (21:31)
[2017-06-26] MEDS: MAGNESIUM OXIDE 400 MG TAB PO SCH (21:32)
[2017-06-26] MEDS: traZODone HCL 100 MG TAB PO SCH (21:32)
[2017-06-26] MEDS: FAMOTIDINE 20 MG TAB PO SCH (21:33)
[2017-06-26] MEDS: SODIUM CHLORIDE 0.9% FLUSH 10 ML FLUSH IV FLUSH SCH (21:33)
[2017-06-26] MEDS: HEPARIN SODIUM - SQ 10,000 UNITS/ML VIAL SQ SCH (21:33)
--- NOTE | 2017-06-26 21:45 | HHI.HP ---
HPI Service [facility] Primary Care Physician Tita Salazar DO Admission Diagnosis New onset A fib, SOB with exertion Diagnoses: Travel History International Travel<30 Days: No Contact w/Intl Traveler <30 Da: No Traveled to Known Affected Are: No History of Present Illness 72-year-old female with a past medical history significant for history of breast cancer, diabetes mellitus and hypertension presents to the emergency department complaining of sores on her head and headache with shortness of breath. The patient reports that for the past 2-3 days she has had open sores on her head with extreme pain associated on just the right side. She also complains of new onset shortness of breath with minimal exertion and feeling "wobbly on her feet." She has no significant cardiac history. On evaluation in the emergency department patient was found to be in atrial flutter with rapid ventricular response. Patient denies any chest pain/palpitations. Vital signs: Temperature 98.4, pulse 107, respiratory rate 14, BP 103/71, pulse ox 96 % on room air Review of Systems Denies fever or chills Denies blurry vision, otorrhea, rhinorrhea Denies sore throat and cough No chest pain, palpitations Positive shortness of breath, No wheezing No abdominal pain Denies constipation/diarrhea/nausea/vomiting Denies muscle pain Denies focal weakness No rashes Past Family Social History Past Medical History Diabetes mellitus Hypertension History of breast cancer Past Surgical History Right lumpectomy 11 years ago Appendectomy Reported Medications Reported Meds & Active Scripts Active Reported Paxil (Paroxetine HCl) 10 Mg Tab 10 Mg PO DAILY Trazodone (Trazodone HCl) 100 Mg Tablet 100 Mg PO HS Magnesium Oxide 400 Mg Tab 400 Mg PO BID Pred Forte Opth 1% (Prednisolone Acetate Opth 1%) 1% Susp 1 Drop RIGHT EYE DAILY Travatan Z Opth Drops (Travoprost) 0.004 % Soln 1 Drop LEFT EYE DAILY Centrum Silver Adult 50+ (Multiple Vitamins W/ Minerals) 1 Tab Tab 1 Tab PO DAILY Benicar (Olmesartan) 40 Mg Tab 40 Mg PO DAILY Protonix (Pantoprazole Sodium) 40 Mg Tab 40 Mg PO DAILY Janumet (Sitagliptin-Metformin) 50-500 Mg Tab 1 Tab PO DAILY Amitiza (Lubiprostone) 24 Mcg Cap 24 Mg PO DAILY @1700 Fish Oil 1200 mg ([place]-3 Fatty Acids) 1 Cap Cap 1,200 Mg PO BID D 2000 (Cholecalciferol) 2,000 Unit Tab 2,000 Units PO DAILY Zantac 150 Maximum Strength (Ranitidine HCl) 150 Mg Tab 150 Mg PO HS Cosopt Opth Drops (Dorzolamide-Timolol Opth Drops) 22.3-6.8 Mg/Ml Soln 1 Drop EACH EYE BID Allergies: Coded Allergies: azithromycin (Verified Allergy, Severe, Nausea/Vomiting, 06/26/17) Family History Negative for CAD/DM Social History Quit tobacco 21 years ago. Denies alcohol, illicit drugs. Physical Exam Vital Signs Vital Signs Date Time Temp Pulse Resp B/P (MAP) Pulse Ox O2 Delivery O2 Flow Rate FiO2 06/26/17 21:13 91 18 144/69 (94) 98 06/26/17 20:48 06/26/17 19:21 92 20 117/79 (92) 98 Room Air 06/26/17 15:18 98.4 107 14 103/71 (82) 96 Physical Exam GENERAL: female sitting up in bed SKIN: 2 open, crusted lesions on the occipital right side of the scalp HEAD: Atraumatic. Normocephalic. EYES: Pupils equal round and reactive. Extraocular motions intact. No scleral icterus. No injection or drainage. ENT: Nose without bleeding, purulent drainage or septal hematoma. Throat without erythema, tonsillar hypertrophy or exudate. Uvula midline. Airway patent. NECK: Trachea midline. No JVD or lymphadenopathy. Supple, nontender, no meningeal signs. CARDIOVASCULAR: Tachycardic. Irregularly irregular rhythm without murmurs, gallops, or rubs. RESPIRATORY: Clear to auscultation. Breath sounds equal bilaterally. No wheezes , rales, or rhonchi. GASTROINTESTINAL: Abdomen soft, non-tender, nondistended. No hepato-splenomegaly , or palpable masses. No guarding. MUSCULOSKELETAL: Extremities without clubbing, cyanosis, or edema. No joint tenderness, effusion, or edema noted. Negative Homans sign bilaterally. NEUROLOGICAL: Awake and alert. Cranial nerves II through XII intact. Motor and sensory grossly within normal limits. Normal speech. Laboratory Laboratory Tests Test 06/26/17 16:07 White Blood Count 7.5 Red Blood Count 4.54 Hemoglobin 13.8 Hematocrit 40.4 Mean Corpuscular Volume 88.8 Mean Corpuscular Hemoglobin 30.3 Mean Corpuscular Hemoglobin Concent 34.1 Red Cell Distribution Width 14.3 Platelet Count 212 Mean Platelet Volume 10.1 Neutrophils (%) (Auto) 67.3 Lymphocytes (%) (Auto) 18.3 Monocytes (%) (Auto) 10.7 Eosinophils (%) (Auto) 2.9 Basophils (%) (Auto) 0.8 Neutrophils # (Auto) 5.0 Lymphocytes # (Auto) 1.4 Monocytes # (Auto) 0.8 Eosinophils # (Auto) 0.2 Basophils # (Auto) 0.1 CBC Comment DIFF FINAL Differential Comment Prothrombin Time 10.3 Prothromb Time International Ratio 1.0 Activated Partial Thromboplast Time 26.1 Blood Urea Nitrogen 12 Creatinine 1.06 Random Glucose 134 Total Protein 8.2 Albumin 3.4 Calcium Level 8.9 Magnesium Level 2.2 Alkaline Phosphatase 67 Aspartate Amino Transf (AST/SGOT) 20 Alanine Aminotransferase (ALT/SGPT) 21 Total Bilirubin 0.4 Sodium Level 140 Potassium Level 3.9 Chloride Level 106 Carbon Dioxide Level 24.6 Anion Gap 9 Estimat Glomerular Filtration Rate 61 Total Creatine Kinase 267 Creatine Kinase MB 2.1 Creatine Kinase MB % 0.8 Troponin I LESS THAN 0.02 Date/Time Source Procedure Growth Status 06/26/17 17:15 Nasal Washing Influenza Types A,B Antigen (AMANDA) - Final NEGATIVE FOR FLU A AND B ANTIGEN.... Complete Result Diagram: 06/26/17 1607 06/26/17 1607 Caprini VTE Risk Assessment Caprini VTE Risk Assessment: Mod/High Risk (score >= 2) Caprini Risk Assessment Model Point Value = 1 Point Value = 2 Point Value = 3 Point Value = 5 Age 41-60 Minor surgery BMI > 25 kg/m2 Swollen legs Varicose veins or History of unexplained or recurrent spontaneous Oral contraceptives or hormone replacement Sepsis (< 1 month) Serious lung disease, including pneumonia (< 1 month) Abnormal pulmonary function Acute myocardial infarction Congestive heart failure (< 1 month) History of inflammatory bowel disease Medical patient at bed rest Age 61-74 Arthroscopic surgery Major open surgery (> 45 min) Laparoscopic surgery (> 45 min) Malignancy Confined to bed (> 72 hours) Immobilizing plaster cast Central venous access Age >= 75 History of VTE Family history of VTE Factor V Leiden Prothrombin [id number] Lupus anticoagulant Anticardiolipin antibodies Elevated serum homocysteine Heparin-induced thrombocytopenia Other congenital or acquired thrombophilia Stroke (< 1 month) Elective arthroplasty Hip, pelvis, or leg fracture Acute spinal cord injury (< 1 month) Prophylaxis Regimen Total Risk Factor Score Risk Level Prophylaxis Regimen 0-1 Low Early ambulation 2 Moderate Order ONE of the following: *Sequential Compression Device (SCD) *Heparin 5000 units SQ BID 3-4 Higher Order ONE of the following medications: *Heparin 5000 units SQ TID *Enoxaparin/Lovenox 40 mg SQ daily (WT < 150 kg, CrCl > 30 mL/min) *Enoxaparin/Lovenox 30 mg SQ daily (WT < 150 kg, CrCl > 10-29 mL/min) *Enoxaparin/Lovenox 30 mg SQ BID (WT < 150 kg, CrCl > 30 mL/min) AND/OR *Sequential Compression Device (SCD) 5 or more Highest Order ONE of the following medications: *Heparin 5000 units SQ TID (Preferred with Epidurals) *Enoxaparin/Lovenox 40 mg SQ daily (WT < 150 kg, CrCl > 30 mL/min) *Enoxaparin/Lovenox 30 mg SQ daily (WT < 150 kg, CrCl > 10-29 mL/min) *Enoxaparin/Lovenox 30 mg SQ BID (WT < 150 kg, CrCl > 30 mL/min) AND *Sequential Compression Device (SCD) Assessment and Plan Assessment and Plan Assessment/plan: 1. Atrial flutter with RVR EKG significant for atrial flutter with RVR, heart rate 134, no ST elevation/ depressions, reviewed by me Patient's rate corrected without medication administration ACS rule out pending, serial troponin/EKGs. Initial troponin negative Echo pending Cardiology consulted, appreciate recommendations Telemetry 2. Shingles Acyclovir 3. Diabetes mellitus Holding home oral anti-hyperglycemics Sliding scale insulin Monitor blood glucose 4. Hypertension Continue home medications FEN Heart healthy diet Electrolytes: monitor and replete prn Heparin La Pink MD Jun 26, 2017 21:45
[2017-06-26] MEDS ORDERED: PILL SPLITTER OTHER PRN (22:00)
[2017-06-26] MEDS ORDERED: diphenhydrAMINE HCL 25 MG CAP PO PRN (22:00)
[2017-06-26] MEDS: ACYCLOVIR 800 MG TAB PO SCH (23:31)
[2017-06-26] MEDS ORDERED: ACETAMINOPHEN/HYDROcodone 325 MG/5 MG TAB PO PRN (23:45)
[2017-06-27] VITALS (10 sets, daily range): BP systolic 124–147; BP diastolic 61–74; PULSE 81–98; RESP 18–20; TEMP 98.1–98.8; O2SAT 96–98
[2017-06-27 00:33] LABS: TROPONIN I LESS THAN 0.02 NG/ML (0.02-0.05)
[2017-06-27 03:32] LABS: AUTOMATED NEUTROPHIL # 4.9 TH/MM3 (1.8-7.7); BASOPHIL % 0.5 % (0.0-2.0); EOSINOPHIL # 0.3 TH/MM3 (0-0.4); EOSINOPHIL % 3.8 % (0.0-4.0); HEMATOCRIT 38.2 % (35.0-46.0); LYMPH % 23.2 % (9.0-44.0); LYMPHOCYTE # 1.9 TH/MM3 (1.0-4.8); MEAN CELL VOLUME 90.2 FL (80.0-100.0); MEAN CORPUSCULAR HEMOGLOBIN 30.7 PG (27.0-34.0); MONO % 12.8 % (0.0-8.0); MONOCYTE # 1.1 TH/MM3 (0-0.9); NEUT % 59.7 % (16.0-70.0); PLATELET COUNT 203 TH/MM3 (150-450); RED BLOOD COUNT 4.23 MIL/MM3 (4.00-5.30); RED CELL DISTRIBUTION WIDTH 14.4 % (11.6-17.2); WHITE BLOOD COUNT 8.3 TH/MM3 (4.0-11.0)
[2017-06-27 03:59] LABS: BICARBONATE 27.5 MEQ/L (21.0-32.0); BLOOD UREA NITROGEN 12 MG/DL (7-18); CALCIUM 8.5 MG/DL (8.5-10.1); CHLORIDE 111 MEQ/L (98-107); CREATININE 1.03 MG/DL (0.50-1.00); GLOMERULAR FILTRATION RATE 63 ML/MIN (>89); GLUCOSE,RANDOM 120 MG/DL (74-106); SODIUM (NA) 143 MEQ/L (136-145)
[2017-06-27 04:02] LABS: TROPONIN I LESS THAN 0.02 NG/ML (0.02-0.05)
[2017-06-27] MEDS: ACYCLOVIR 800 MG TAB PO SCH ×5 (06:28→21:33)
[2017-06-27] MEDS: HEPARIN SODIUM - SQ 10,000 UNITS/ML VIAL SQ SCH ×2 (06:29→13:53)
[2017-06-27] MEDS: INSULIN ASPART SUPPLEMENTAL SCALE SQ SCH ×4 (08:00→21:00)
[2017-06-27] MEDS: PARoxetine HCL 20 MG TAB PO SCH (08:52)
[2017-06-27] MEDS: FAMOTIDINE 20 MG TAB PO SCH ×2 (08:54→21:33)
[2017-06-27] MEDS: MAGNESIUM OXIDE 400 MG TAB PO SCH ×2 (08:54→23:46)
[2017-06-27] MEDS: LOSARTAN 50 MG TAB PO SCH (08:56)
[2017-06-27] MEDS: LATANOPROST 0.005% OPHT SOLN 2.5 ML BTL LEFT EYE SCH (08:58)
[2017-06-27] MEDS: DORZOLAMIDE/TIMOLOL OPTH SOLN 10 ML BTL EACH EYE SCH ×2 (08:59→21:35)
[2017-06-27] MEDS: prednisoLONE ACETATE 1% OPHT SUSP 5 ML BTL RIGHT EYE SCH (09:00)
[2017-06-27] MEDS ORDERED: PANTOPRAZOLE SOD 40 MG DELAYED RELEASE TAB PO SCH (09:00)
[2017-06-27] MEDS: SODIUM CHLORIDE 0.9% FLUSH 10 ML FLUSH IV FLUSH SCH ×2 (09:01→21:34)
--- NOTE | 2017-06-27 12:49 | MB ---
cc: BOB HERNANDEZ DO DATE OF CONSULTATION 06/27/2017 REASON FOR CONSULTATION New-onset atrial fibrillation. HISTORY OF PRESENT ILLNESS Valarie Matt is a pleasant 72-year-old female who presented to [facility] emergency room on June 26, 2017 due to weakness, palpitations and shortness of breath. She states that this has been going on for the past [id number] days but got extensively worse the day that she presented. On arrival, she was found to be in atrial flutter with rapid ventricular response. Before intervention could be done in the emergency room for her atrial fibrillation with rapid ventricular response, it appears that she converted back to sinus rhythm. In seeing her, she is currently hemodynamically stable without chest pain or shortness of breath. PAST MEDICAL HISTORY 1. Diabetes mellitus 2. Hypertension 3. History of breast cancer. 4. New onset atrial fibrillation, CHADS-VASc score equals 4 (hypertension, diabetes mellitus, age, female). PAST SURGICAL HISTORY 1. Right lumpectomy (2006) 2. Appendectomy ALLERGIES AZITHROMYCIN MEDICATIONS 1. Fish oil 1200 mg b.i.d. 2. Benicar 40 mg daily 3. Paxil 10 mg daily 4. Trazodone 100 mg every night 5. Prednisolone one drop right eye daily 6. Cosopt one drop each eye b.i.d. 7. Travatan one drop left eye daily 8. Magnesium oxide 400 mg b.i.d. 9. Amitiza 24 mg daily 10. Zantac 150 mg every night 11. Protonix 40 mg daily 12. Janumet 50/500 daily 13. Multivitamin daily FAMILY HISTORY Denies premature coronary artery disease or sudden cardiac within the family. SOCIAL HISTORY The patient previously smoked, but quit 21 years ago. Denies alcohol or drug abuse. REVIEW OF SYSTEMS 14-systems were reviewed including osteopathic pertinent positives and negatives as above otherwise negative. PHYSICAL EXAMINATION VITAL SIGNS: Temperature 98.7, heart rate 95, blood pressure 147/68, respirations 18, pulse ox 97% on room air. GENERAL: The patient appears well in no acute distress, alert, awake and oriented x3. HEAD, EYES, EARS, NOSE, AND THROAT: Extraocular muscles intact. Mucous membranes moist. NECK: Supple. JVD at 45 degrees. No carotid bruits heard bilaterally. Carotid upstroke is brisk in nature. HEART: Regular rate and rhythm. Positive first and second heart sounds with no murmurs, gallops or rubs. LUNGS: Decreased breath sounds bilaterally, but no overt wheezes, rales or rhonchi. ABDOMEN: Soft, nontender, and nondistended. No organomegaly noted. EXTREMITIES: Show trace edema bilaterally. NEUROLOGIC: No focal deficits. SKIN: Warm, dry and intact. OSTEOPATHIC: Mild lordosis. No kyphoscoliosis or paraspinal tender points. LABORATORY FINDINGS Hemoglobin 13.0, hematocrit 38.2, platelets 203. Potassium 3.8, BUN 12, creatinine 1.03, troponin negative x3. TSH 1.5. Electrocardiogram (June 27, 2017 at 0425) normal sinus rhythm, possible right atrial enlargement, possible left atrial enlargement, with no acute ST-T wave changes. IMPRESSIONS 1. New onset atrial fibrillation, CHADS-VASc score equals four. 2. Shortness of breath most likely due to atrial fibrillation with rapid ventricular response. 3. History of hypertension. 4. History of diabetes mellitus. 5. Remote tobacco abuse. RECOMMENDATIONS 1. Ms. Matt presented with new onset atrial fibrillation and has since converted back to sinus rhythm on her own. We will plan on placing her on beta willi therapy with Metoprolol tartrate. 2. We will check an echo to look at her overall left ventricular function, cardiac structure and possible valvopathies. 3. She previously had a pharmacologic nuclear stress test which showed a small moderate severity not reversible apical perfusion abnormality, and needs no further ischemic workup at this time. 4. Her CHADS-VASc score is four and I discussed with her consideration of anticoagulation because of this. She states that she has no problems with bleeding or falls and so we will plan on placing her on Eliquis 5 mg b.i.d. 5. She will be watched overnight and if stable in the morning can be discharged home. 6. She did previously see Dr. Michael around two years ago, I told her she may follow up with him or myself for further recommendations. Thank you for allowing me to see Valarie Matt. If there are any questions, please do not hesitate to call. Bob Hernandez DO KAMINIP/SHANE /12:16 PM /12:33 PM
--- NOTE | 2017-06-27 13:00 | HHI.PR ---
Subjective Remarks Follow-up atrial flutter. Patient in sinus rhythm. She reports of dyspnea on exertion for the past 6 months and had negative workup with CTA, Lexiscan and chest x-ray. Also negative cardiac catheterization by Dr. Michael. Objective Vitals Vital Signs Date Time Temp Pulse Resp B/P (MAP) Pulse Ox O2 Delivery O2 Flow Rate FiO2 06/27/17 11:31 98.7 95 18 147/68 (94) 97 06/27/17 07:49 98.6 97 18 132/63 (86) 96 06/27/17 04:04 96 06/27/17 03:42 98.4 93 18 127/61 (83) 96 06/27/17 00:57 18 06/27/17 00:06 98 06/26/17 21:13 91 18 144/69 (94) 98 06/26/17 20:48 06/26/17 19:21 92 20 117/79 (92) 98 Room Air 06/26/17 15:18 98.4 107 14 103/71 (82) 96 Result Diagram: 06/27/17 0309 06/27/17 0309 Imaging Last Impressions Chest X-Ray 06/26/17 1530 Signed Impressions: Service Date/Time: Monday, June 26, 2017 15:39 - CONCLUSION: 1. No acute cardiopulmonary disease. John Hoffman MD Objective Remarks GENERAL: female sitting up in bed, well-developed obese in no distress SKIN: 2 open, crusted lesions on the occipital right side of the scalp CARDIOVASCULAR: Regular rate and rhythm without murmurs, gallops, or rubs. RESPIRATORY: Clear to auscultation. Breath sounds equal bilaterally. No wheezes , rales, or rhonchi. GASTROINTESTINAL: Abdomen soft, non-tender, nondistended. No guarding. MUSCULOSKELETAL: Extremities without clubbing, cyanosis, or edema. No joint tenderness, effusion, or edema noted. Negative Homans sign bilaterally. NEUROLOGICAL: Awake and alert. Cranial nerves II through XII intact. Motor and sensory grossly within normal limits. Normal speech. Procedures none A/P Problem List: (1) Shortness of breath ICD Code: R06.02 - Shortness of breath Status: Acute (2) Shingles ICD Code: B02.9 - Zoster without complications Status: Acute Assessment and Plan 1. Atrial flutter with RVR. Now in sinus rhythm. Follow-up echocardiogram. High chads score of 4 needs to be anticoagulated patient agrees await cardiology recommendations. Monitor on telemetry. Patient complaining of intermittent shortness of breath for the past 6 months with negative workup. Shortness of breath likely secondary to paroxysmal atrial flutter pending echocardiogram. Recommended outpatient pulmonary function test 2. Shingles. Stable continue Acyclovir 3. Diabetes mellitus. Stable monitor fingersticks with sliding scale coverage and restart home meds 4. Hypertension Continue home medications FEN Heart healthy diet Electrolytes: monitor and replete prn Heparin Discharge Planning Discharge when cleared by cardiology Problem Qualifiers (1) Shingles: Qualified Codes: B02.9 - Zoster without complications Bony Zamudio MD Jun 27, 2017 13:00
[2017-06-27] MEDS: METOPROLOL TARTRATE 25 MG TAB PO SCH ×2 (13:52→21:34)
[2017-06-27] MEDS ORDERED: NON-FORMULARY DRUG (Sitagliptin-Metformin (Janumet) 1 TAB) PO SCH (16:45)
--- NOTE | 2017-06-27 17:26 | EKG ---
Date Performed: 06/27/2017 Time Performed: 04:25:00 PTAGE: 72 years EKG: Sinus rhythm POSSIBLE RIGHT ATRIAL ENLARGEMENT POSSIBLE LEFT ATRIAL ENLARGEMENT INDETERMINATE AXIS ABNORMAL ECG PREVIOUS TRACING : 06/27/2017 02.16 DOCTOR: Enriqueta Bentley Interpretating Date/Time 06/27/2017 17:21:53
--- NOTE | 2017-06-27 17:29 | EKG ---
Date Performed: 06/27/2017 Time Performed: 02:16:53 PTAGE: 72 years EKG: Sinus rhythm WITH OCCASIONAL SUPRAVENTRICULAR PREMATURE COMPLEXES POSSIBLE RIGHT ATRIAL ENLARGEMENT MARKED RIGHT AXIS DEVIATION ABNORMAL ECG PREVIOUS TRACING : 06/26/2017 18.14 DOCTOR: Enriqueta Bentley Interpretating Date/Time 06/27/2017 17:23:43
[2017-06-27] MEDS: metFORMIN HCL 500 MG TAB PO SCH (17:30)
--- NOTE | 2017-06-27 17:39 | EKG ---
Date Performed: 06/26/2017 Time Performed: 18:14:58 PTAGE: 72 years EKG: Irregular tachycardia Possible atrial fibrillation/ atrial flutter Electrical interferences preclude further analysis. INTERPRETATION BASED ON A DEFAULT AGE OF 40 YEARS PREVIOUS TRACING : 06/26/2017 16.19 DOCTOR: Enriqueta Bentley Interpretating Date/Time 06/27/2017 17:32:26
--- NOTE | 2017-06-27 17:42 | EKG ---
Date Performed: 06/26/2017 Time Performed: 16:19:38 PTAGE: 72 years EKG: ATRIAL FLUTTER/TACHYCARDIA WITH RAPID VENTRICULAR RESPONSE MARKED RIGHT AXIS DEVIATION IMAN KATIE CONSISTENT WITH PULMONARY DISEASE ABNORMAL ECG PREVIOUS TRACING : 10/24/2016 02.52 DOCTOR: Enriqueta Bentley Interpretating Date/Time 06/27/2017 17:34:17
--- NOTE | 2017-06-27 18:07 | ECHRPT ---
Indication: a fib/flutter CONCLUSIONS Very technically difficult study. In limited views, the left ventricular systolic function is low normal with an estimated ejection fr action in the range of 50-55%. Trace mitral valve regurgitation. There is mild tricuspid valve regurgitation. BP: / HR: Rhythm: MEASUREMENTS (Male / Female) Normal Values Technical Quality:Very technically difficult study 2D ECHO LV Diastolic Diameter PLAX 4.2 cm 4.2 - 5.9 / 3.9 - 5.3 cm LV Systolic Diameter PLAX 3.3 cm IVS Diastolic Thickness 1.3 cm 0.6 - 1.0 / 0.6 - 0.9 cm LVPW Diastolic Thickness 0.9 cm 0.6 - 1.0 / 0.6 - 0.9 cm LV Relative Wall Thickness 0.5 RV Internal Dim ED PLAX 2.1 cm M-MODE Aortic Root Diameter MM 2.5 cm LA Systolic Diameter MM 2.7 cm LA Ao Ratio MM 1.1 AV Cusp Separation MM 1.6 cm DOPPLER LV E' Lateral Velocity 7.1 cm/s LV E' Septal Velocity 7.7 cm/s FINDINGS LEFT VENTRICLE Normal left ventricular size. In limited views, the left ventricular systolic function is low normal with an estimated ejection fr action in the range of 50-55%. There was limited left ventricular wall motion assessment due to poor endocardial visualization. RIGHT VENTRICLE The right ventricle was not well visualized. LEFT ATRIUM The left atrium was not well visualized. RIGHT ATRIUM The right atrium is not well visualized. ATRIAL SEPTUM The interatrial septum not well visualized. MITRAL VALVE Grossly normal mitral valve. Trace mitral valve regurgitation. No mitral valve stenosis. AORTIC VALVE Not well visualized No aortic valve regurgitation. No aortic valve stenosis. TRICUSPID VALVE Grossly normal tricuspid valve. There is mild tricuspid valve regurgitation. PULMONARY VALVE The pulmonary valve is not well visualized. Bob Philippe DO (Electronically Signed) Final Date:27 June 2017 18:06
[2017-06-27] MEDS: APIXABAN 5 MG TABLET PO SCH (21:34)
[2017-06-27] MEDS: traZODone HCL 100 MG TAB PO SCH (21:34)
[2017-06-28] VITALS: PULSE 82
[2017-06-28 00:04] VITALS: BP 117/55; PULSE 74; RESP 18; TEMP 98.1; O2SAT 97
[2017-06-28 03:55] VITALS: BP 119/59; PULSE 80; RESP 18; TEMP 98.4; O2SAT 96
[2017-06-28 03:59] VITALS: PULSE 77
[2017-06-28] MEDS: ACYCLOVIR 800 MG TAB PO SCH ×2 (05:53→09:16)
[2017-06-28] MEDS ORDERED: LUBIPROSTONE 24 MG PO SCH (08:00)
[2017-06-28] MEDS: INSULIN ASPART SUPPLEMENTAL SCALE SQ SCH (08:00)
[2017-06-28] MEDS ORDERED: MAGNESIUM HYDROXIDE SUSP 30 ML CUP PO PRN (08:15)
[2017-06-28] MEDS ORDERED: BISACODYL 10 MG SUPP RECTAL PRN (08:15)
[2017-06-28] MEDS ORDERED: SENNOSIDES 8.6 MG TAB PO PRN (08:15)
--- NOTE | 2017-06-28 08:45 | HHI.FF ---
Face to Face Verification Diagnosis: (1) New onset a-fib Physical Therapy Order: Evaluate and Treat, Improve ambulation, Strength and gait training Home Health Nursing Order: Medical education Signs/symptoms of disease process Medication education-adverse effect Nursing assessment with vital signs I have seen patient Rylee Matt on 06/28/17. My clinical findings support the need for the requested home health care services because: Patient has SOB Deconditioned w/ increased weakness I certify that my clinical findings support that this patient is homebound because: Need for psychosocial assistance Bony Zamudio MD Jun 28, 2017 08:45
[2017-06-28 08:47] VITALS: BP 124/66; PULSE 79; RESP 18; TEMP 98.1; O2SAT 96
[2017-06-28] MEDS ORDERED: DOCUSATE SODIUM 50 MG/SENNA 8.6 MG TAB PO SCH (09:00)
[2017-06-28] MEDS: LATANOPROST 0.005% OPHT SOLN 2.5 ML BTL LEFT EYE SCH (09:12)
[2017-06-28] MEDS: DORZOLAMIDE/TIMOLOL OPTH SOLN 10 ML BTL EACH EYE SCH (09:12)
[2017-06-28] MEDS: prednisoLONE ACETATE 1% OPHT SUSP 5 ML BTL RIGHT EYE SCH (09:14)
[2017-06-28] MEDS: SODIUM CHLORIDE 0.9% FLUSH 10 ML FLUSH IV FLUSH SCH (09:15)
[2017-06-28] MEDS: APIXABAN 5 MG TABLET PO SCH (09:16)
[2017-06-28] MEDS: LOSARTAN 50 MG TAB PO SCH (09:18)
[2017-06-28] MEDS: MAGNESIUM OXIDE 400 MG TAB PO SCH (09:18)
[2017-06-28] MEDS: FAMOTIDINE 20 MG TAB PO SCH (09:19)
[2017-06-28] MEDS: PARoxetine HCL 20 MG TAB PO SCH (09:20)
[2017-06-28] MEDS: METOPROLOL TARTRATE 25 MG TAB PO SCH (09:21)
[2017-06-28] MEDS: metFORMIN HCL 500 MG TAB PO SCH (09:23)
[2017-06-28] MEDS ORDERED: LUBIPROSTONE PO SCH (09:30)
[2017-06-28] MEDS ORDERED: APIX5TAB PO (10:42)
[2017-06-28] MEDS ORDERED: ACYC800T PO (10:42)
[2017-06-28] MEDS ORDERED: METO25TA3 PO (10:42)
[2017-06-28] MEDS ORDERED: HYDR-3516 PO (11:48)
[2017-06-28 11:51] VITALS: BP 127/62; PULSE 70; RESP 18; TEMP 98.3; O2SAT 97
--- NOTE | 2017-06-28 13:46 | PD.CARD.PN ---
Subjective Subjective Remarks No events overnight Heart rates better controlled Objective Medications Current Medications Medications (Trade) Dose Ordered Sig/Johanny Route Start Time Stop Time Status Last Admin (NS Flush) 2 ml UNSCH PRN IV FLUSH 06/26/17 19:45 (NS Flush) 2 ml BID IV FLUSH 06/26/17 21:00 06/28/17 09:15 (Tylenol) 650 mg Q4H PRN PO 06/26/17 19:45 (Zofran Inj) 4 mg Q6H PRN IVP 06/26/17 19:45 (Narcan Inj) 0.4 mg UNSCH PRN IV PUSH 06/26/17 19:45 (D50w (Vial) Inj) 50 ml UNSCH PRN IV PUSH 06/26/17 19:45 (Glucagon Inj) 1 mg UNSCH PRN OTHER 06/26/17 19:45 (NovoLOG SUPPLEMENTAL SCALE) 1 ACHS SLIDING SCALE SQ 06/26/17 21:00 (Cosopt 2-0.5% Opth Soln) 1 drop BID EACH EYE 06/26/17 21:00 06/28/17 09:12 (Mag-Ox) 400 mg BID PO 06/26/17 21:00 06/28/17 09:18 (Pred Forte 1% Opth Susp) 1 drop DAILY RIGHT EYE 06/27/17 09:00 06/28/17 09:14 (Cozaar) 100 mg DAILY PO 06/27/17 09:00 06/28/17 09:18 (Paxil) 10 mg DAILY PO 06/27/17 09:00 06/28/17 09:20 (Pepcid) 10 mg BID PO 06/26/17 21:00 06/28/17 09:19 (Xalatan 0.005% Opth Soln) 1 drop DAILY LEFT EYE 06/27/17 09:00 06/28/17 09:12 (Desyrel) 100 mg HS PO 06/26/17 21:00 06/27/17 21:34 (Zovirax) 800 mg 5 TIMES A DAY PO 06/26/17 22:00 06/28/17 09:16 (Pill Splitter) 1 ea UNSCH PRN OTHER 06/26/17 22:00 (Benadryl) 25 mg HS PRN PO 06/26/17 22:00 06/26/17 23:31 ([place] 5-325 Mg) 1 tab Q6H PRN PO 06/26/17 23:45 06/26/17 23:55 (Lopressor) 25 mg Q12HR PO 06/27/17 12:30 06/28/17 09:21 (Eliquis) 5 mg BID PO 06/27/17 21:00 06/28/17 09:16 (Januvia) 50 mg DAILY PO 06/27/17 17:30 06/28/17 09:22 (Glucophage) 500 mg DAILY PO 06/27/17 17:30 06/28/17 09:23 Patient Own Medication PT OWN MED: AMITIZA (LUBIPROSTO... DAILY PO 06/28/17 09:30 Future Hold (Marilynn-Colace) 1 tab BID PO 06/28/17 09:00 (Milk Of Magnesia Liq) 30 ml Q12H PRN PO 06/28/17 08:15 (Senokot) 17.2 mg Q12H PRN PO 06/28/17 08:15 (Dulcolax Supp) 10 mg DAILY PRN RECTAL 06/28/17 08:15 Vital Signs / I&O Vital Signs Date Time Temp Pulse Resp B/P (MAP) Pulse Ox O2 Delivery O2 Flow Rate FiO2 06/28/17 11:51 98.3 70 18 127/62 (83) 97 06/28/17 08:47 98.1 79 18 124/66 (85) 96 06/28/17 03:59 77 06/28/17 03:55 98.4 80 18 119/59 (79) 96 06/28/17 00:04 98.1 74 18 117/55 (75) 97 06/28/17 00:00 82 06/27/17 20:15 98.1 84 20 142/65 (90) 96 06/27/17 20:10 84 06/27/17 15:29 98.8 81 18 124/74 (91) 98 06/27/17 15:00 86 I/O 06/27/17 06/27/17 06/27/17 06/28/17 06/28/17 06/28/17 07:00 15:00 23:00 07:00 15:00 23:00 Intake Total 250 ml Output Total 1500 ml Balance 250 ml -1500 ml Intake Oral 250 ml Output Urine Total 1500 ml # Voids 1 Physical Exam GENERAL: NAD, AAOx3 SKIN: Warm and dry. HEAD: Atraumatic. Normocephalic. EYES: Pupils equal and round. No scleral icterus. No injection or drainage. ENT: No nasal bleeding or discharge. Mucous membranes pink and moist. NECK: Trachea midline. No JVD. CARDIOVASCULAR: Regular rate and rhythm. RESPIRATORY: No accessory muscle use. Clear to auscultation. Breath sounds equal bilaterally. GASTROINTESTINAL: Abdomen soft, non-tender, nondistended. Hepatic and splenic margins not palpable. MUSCULOSKELETAL: Extremities without clubbing, cyanosis, or edema. No obvious deformities. NEUROLOGICAL: Awake and alert. No obvious cranial nerve deficits. Motor grossly within normal limits. Five out of 5 muscle strength in the arms and legs. Normal speech. PSYCHIATRIC: Appropriate mood and affect; insight and judgment normal. Assessment and Plan Problem List: (1) New onset a-fib ICD Codes: I48.91 - Unspecified atrial fibrillation Status: Acute (2) Shortness of breath ICD Codes: R06.02 - Shortness of breath Status: Acute (3) DM (diabetes mellitus) ICD Codes: E11.9 - Type 2 diabetes mellitus without complications Status: Acute (4) Hypertension ICD Codes: I10 - Essential (primary) hypertension Status: Acute (5) Chest pain ICD Codes: R07.9 - Chest pain, unspecified Status: Acute Assessment and Plan 1) New onset Afib CHADSVASc=4, started on Eliquis Now in NSR Con't BB 2) Cardiovascularly stable for discharge Follow up with me in the office in 2-4 weeks 3) EF 50-55%, trace MR, mild TR Bob Philippe DO Jun 28, 2017 13:46
--- NOTE | 2017-06-28 13:57 | HHI.PR ---
Subjective Remarks Follow-up atrial flutter. Improving shortness of breath discussed with PT and nursing staff Objective Vitals Vital Signs Date Time Temp Pulse Resp B/P (MAP) Pulse Ox O2 Delivery O2 Flow Rate FiO2 06/28/17 11:51 98.3 70 18 127/62 (83) 97 06/28/17 08:47 98.1 79 18 124/66 (85) 96 06/28/17 03:59 77 06/28/17 03:55 98.4 80 18 119/59 (79) 96 06/28/17 00:04 98.1 74 18 117/55 (75) 97 06/28/17 00:00 82 06/27/17 20:15 98.1 84 20 142/65 (90) 96 06/27/17 20:10 84 06/27/17 15:29 98.8 81 18 124/74 (91) 98 06/27/17 15:00 86 I/O 06/27/17 06/27/17 06/27/17 06/28/17 06/28/17 06/28/17 07:00 15:00 23:00 07:00 15:00 23:00 Intake Total 250 ml Output Total 1500 ml Balance 250 ml -1500 ml Intake Oral 250 ml Output Urine Total 1500 ml # Voids 1 Result Diagram: 06/27/17 0309 06/27/17 0309 Imaging Last Impressions Chest X-Ray 06/26/17 1530 Signed Impressions: Service Date/Time: Monday, June 26, 2017 15:39 - CONCLUSION: 1. No acute cardiopulmonary disease. John Hoffman MD Objective Remarks GENERAL: female sitting up in bed, well-developed obese in no distress SKIN: 2 open, crusted lesions on the occipital right side of the scalp CARDIOVASCULAR: Regular rate and rhythm without murmurs, gallops, or rubs. RESPIRATORY: Clear to auscultation. Breath sounds equal bilaterally. No wheezes , rales, or rhonchi. GASTROINTESTINAL: Abdomen soft, non-tender, nondistended. No guarding. MUSCULOSKELETAL: Extremities without clubbing, cyanosis, or edema. No joint tenderness, effusion, or edema noted. Negative Homans sign bilaterally. NEUROLOGICAL: Awake and alert. Cranial nerves II through XII intact. Motor and sensory grossly within normal limits. Normal speech. Procedures none A/P Problem List: (1) Shortness of breath ICD Code: R06.02 - Shortness of breath Status: Acute (2) Shingles ICD Code: B02.9 - Zoster without complications Status: Acute Assessment and Plan 1. Atrial flutter with RVR. Now in sinus rhythm. Follow-up echocardiogram unremarkable EF 50%. High chads score of 4 on Eliquis. She is also on Lopressor. Monitor on telemetry. Patient complaining of intermittent shortness of breath for the past 6 months with negative workup. Shortness of breath likely secondary to paroxysmal atrial flutter. Recommended outpatient pulmonary function test 2. Shingles. Stable continue Acyclovir. Pain management with Lortab counseled regarding narcotics 3. Diabetes mellitus. Stable monitor fingersticks with sliding scale coverage and restart home meds 4. Hypertension Continue home medications FEN Heart healthy diet Electrolytes: monitor and replete prn Heparin Discharge Planning Discharge patient to home Condition on discharge: Improved Regular Diet as tolerated Ad Loraine activity no driving Rx written: Acyclovir, Eliquis, metoprolol and Lortab Follow-up with primary care physician and cardiology Problem Qualifiers (1) Shingles: Qualified Codes: B02.9 - Zoster without complications Bony Zamudio MD Jun 28, 2017 13:57
== END 2017-06-28 14:31 | disposition home or self-care (01) ==
LOC: NEPC 15:14 → NEDA 19:26 → NEPGCP 20:26
PROVIDERS: ADMIT Internal Medicine; ATTEND Internal Medicine
DX: I48.92 Unspecified atrial flutter (principal); B02.9 Zoster without complications; R06.02 Shortness of breath; R07.9 Chest pain, unspecified; R00.0 Tachycardia, unspecified; R05 Cough; R94.31 Abnormal electrocardiogram [ECG] [EKG]; I10 Essential (primary) hypertension; D57.1 Sickle-cell disease without crisis; I48.91 Unspecified atrial fibrillation; E11.9 Type 2 diabetes mellitus without complications; K21.9 Gastro-esophageal reflux disease without esophagitis; M17.10 Unilateral primary osteoarthritis, unspecified knee; M47.892 Other spondylosis, cervical region; F41.9 Anxiety disorder, unspecified; F32.9 Major depressive disorder, single episode, unspecified; H40.9 Unspecified glaucoma; Z85.3 Personal history of malignant neoplasm of breast; Z79.899 Other long term (current) drug therapy; Z87.891 Personal history of nicotine dependence
CPT/HCPCS: 71046; 80048; 80053; 82550; 82552; 82948; 83735; 84443; 84484; 85025; 85610; 85730; 87804; 93005; 93306; 94664; 96360; 96361; 96372; 97162; 99285; G0378; G8987; G8988; J1644; J7030